=== PATIENT | female | born 1945 | race Caucasian/White ===

== ENCOUNTER → 2017-11-13 12:45 | Outpatient (CLI) | payer MEDICARE, MEDICAID, SELFPAY ==
--- NOTE | 2017-11-13 | DI.MG.S_ITS ---
BILATERAL DIGITAL SCREENING MAMMOGRAM 3D/2D WITH CAD: 11/13/2017 CLINICAL: Routine screening. Family history of breast cancer. Comparison is made to exams dated: 08/18/2015 mammogram, 08/11/2014 mammogram, and 06/27/2013 mammogram - [facility]. There are scattered fibroglandular elements in both breasts. Current study was also evaluated with a Computer Aided Detection (CAD) system. No significant masses, calcifications, or other findings are seen in either breast. There has been no significant interval change. IMPRESSION: NEGATIVE There is no mammographic evidence of malignancy. A 1 year screening mammogram is recommended. This exam was interpreted at Station ID: [id number]. NOTE: For mammograms, a report in lay terms will be sent to the patient. Approximately 15% of breast malignancies will not be visualized mammographically. In the management of a palpable breast mass, a negative mammogram must not discourage biopsy of a clinically suspicious lesion. Electronically Signed By: Ayo hammonds/peyton:11/13/2017 16:51:50 letter sent: Normal Exam ACR BI-RADS Category 1: Negative [id number]
== END ==
PROVIDERS: Family Provider Nurse Practitioner Family; PCP Family Medicine; Visit Provider Family Medicine
DX: Z12.31 Encounter for screening mammogram for malignant neoplasm of breast (principal); Z80.3 Family history of malignant neoplasm of breast
CPT/HCPCS: 77063; 77067

== ENCOUNTER → 2018-02-12 14:56 | Outpatient (CLI) | payer MEDICARE, MEDICAID, SELFPAY ==
--- NOTE | 2018-02-12 14:59 | DI.RAD.S_ITS ---
PROCEDURE: XR KNEE RT 3V INDICATIONS: right knee pain TECHNIQUE: 3 views of the knee were acquired. COMPARISON: None. FINDINGS: Bones: No fractures or dislocations. No suspicious bony lesions. Mild degenerative joint disease is present with joint space narrowing and small osteophytes in the medial femorotibial compartment and patellofemoral compartment. Soft tissues: Moderate joint effusion is suspected. No suspicious soft tissue calcifications. IMPRESSION: 1. Mild degenerative joint disease. 2. Suspect moderate knee joint effusion. Dictated by: Zenaida Delatorre M.D. on 02/12/2018 at 17:12 Approved by: Zenaida Delatorre M.D. on 02/12/2018 at 17:45
== END ==
PROVIDERS: Family Provider Nurse Practitioner Family; PCP Family Medicine; Visit Provider Internal Medicine
DX: M25.561 Pain in right knee (principal); M17.11 Unilateral primary osteoarthritis, right knee
CPT/HCPCS: 73562

== ENCOUNTER 2018-02-26 11:05 | Outpatient (RCR) | payer MEDICARE, MEDICAID, SELFPAY ==
--- NOTE | 2018-02-28 09:26 | PT.OIE ---
Current Diagnoses Pain in right knee (02/26/18) Past Medical History (Last Updated 01/08/18 @ 16:48 by Lisa Strauss) Mastocytosis (Chronic) Osteoporosis (Chronic 2013) Provider Visit Care Team Role Provider Type Apryl Naqvi MD Primary Care Provider Physician Specialty: Family Practice Address: [address] [place] [address] Email: [email or web address] JANNET Sanchez Attending Provider Advanced Laboratory Immunologist Specialty: Family Practice Address: [address] [place] [address], [address] Email: [email or web address] Physical Therapy Initial Evaluation PT-OP-A Visit Information Start: 02/28/18 09:03 Freq: Status: Active Protocol: Document 02/28/18 09:04 [facility] (Rec: 02/28/18 09:26 [facility] [id number]) Out-Patient Physical Therapy Visit Information Visit Information Visit Type Initial Evaluation Visit Start Time 11:15 Visit Stop Time 12:00 Total Visit Minutes 45 Visit Number 1 Number of LICENSED SALES PRODUCER Visits 0 Evaluation Information Evaluation Date 02/26/18 PT-OP-B Current Condition Start: 02/28/18 09:03 Freq: Status: Active Protocol: Document 02/28/18 09:04 [facility] (Rec: 02/28/18 09:26 [facility] [id number]) Current Condition History of Current Condition Onset Date Beginning of January 2018 Current Complaints right sided knee pain, instability and swelling History of Current Condition Jenifer is a 72 year old female who was walking up her 19 stairs carrying her groceries and a 20# bag of cat litter. She stepped up and felt a strain in her right knee. SInce that time she reports feeling swelling and instability in her knee. She notes her kneecap feelis like it wants to move around She is cautious with her first step after sitting as she does not feel stable. She is not using a assistive device to walk at this time. 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 PT-OP-C Subjective Start: 02/28/18 09:03 Freq: Status: Active Protocol: Document 02/28/18 09:04 [facility] (Rec: 02/28/18 09:26 [facility] [email or web address]) OP-PT Pain Assessment Pain Assessment Grid Paper Pain Assessment Grid Completed Yes Location Right Knee Pain Location Details medial side of the knee and under the knee cap Intensity 7 Scale Used Numeric (1 - 10) Pain Aggravating Factors Changing Position Activity Exercise Standing Walking Stair Climbing Lifting PT-OP-F Manual Assessment Start: 02/28/18 09:03 Freq: Status: Active Protocol: Document 02/28/18 09:04 [facility] (Rec: 02/28/18 09:26 [facility] [email or web address]) Manual Assessments Soft Tissue Assessment Soft Tissue Mobility Assessment swelling noted to palpation distal to the patella, tenderness to palpation at the medial joint line Joint Mobility Assessment Joint Mobility Assessment tenderness noted with patella mobilization PT-OP-G Mobility & Gait Start: 02/28/18 09:03 Freq: Status: Active Protocol: Document 02/28/18 09:04 [facility] (Rec: 02/28/18 09:26 [facility] [email or web address]) OP Gait Assessment Gait Deviations General Gait Pattern Antalgic Factors Limiting Gait Function Factors Limiting Gait Function Pain PT-OP-J Posture/Palpation/Skin Start: 02/28/18 09:03 Freq: Status: Active Protocol: Document 02/28/18 09:04 [facility] (Rec: 02/28/18 09:26 [facility] [email or web address]) Palpation Assessment Location One Palpation Location right patella and medial knee Palpation Findings Edema Tenderness PT-OP-K Range of Motion Start: 02/28/18 09:03 Freq: Status: Active Protocol: Document 02/28/18 09:04 [facility] (Rec: 02/28/18 09:26 [facility] [email or web address]) Knee Goniometric Range of Motion Knee Measured in Degrees Right Knee ROM WFL No Patient Position Supine Flexion Active (degrees) 110 Extension Active (degrees) 5 Knee ROM Limitations Knee ROM Limitations Soft Tissue Tightness Pain Swelling Comments limited by pain and swelling with flexion Jenifer notes feeling pressue under her patella PT-OP-M Strength Start: 02/28/18 09:03 Freq: Status: Active Protocol: Document 02/28/18 09:04 [facility] (Rec: 02/28/18 09:26 [facility] [email or web address]) Knee Strength Knee Manual Muscle Testing Right Flexion (S2) 3 Fair Extension (L3) 3- Fair- Comments it is very difficult for Jenifer to perform a quadriceps isometric contraction PT-OP-Q Treatments Start: 02/28/18 09:03 Freq: Status: Active Protocol: Document 02/28/18 09:04 [facility] (Rec: 02/28/18 09:26 [facility] [email or web address]) Therapeutic Exercises Supine Exercises 2 Supine Exercise Name heel slides Side right 1 Supine Exercise Name quad sets Side bilateral Reps/Minutes 2 x 10 Strapping Treatment Treatment Body Location right knee Details of Treatment kinesiotape to support the patella and prevent lateral glide PT-OP-R Modalities Start: 02/28/18 09:03 Freq: Status: Active Protocol: Document 02/28/18 09:04 [facility] (Rec: 02/28/18 09:26 [facility] [email or web address]) Hot Pack/Cold Pack Treatment Ice Massage Location right medial knee Patient Position Supine Patient Tolerance Good Comments pt really liked the ice but I did place the ice in a washcloth as initially it was too cold for her tolerance. Afterward she noted how much better her knee felt PT-OP-T Assessment and Plan Start: 02/28/18 09:03 Freq: Status: Active Protocol: Document 02/28/18 09:04 [facility] (Rec: 02/28/18 09:26 [facility] [email or web address]) Physical Therapy Assessment Rehab Potential Rehabilitation Potential Good Evaluation Complexity Number of Personal Factors/Comorbidities 0 Number of Body Systems Impaired 1-2 Clinical Presentation at Evaluation Stable Impairments Impairments Activity Tolerance Edema Functional Activities Functional Mobility Gait Pain ROM Soft Tissue Mobility Strength Goals Four Impairment Limited with work duties and stairs due to pain Forestry Engineer Goal (LTG) Jenifer is able to return to all her work related duties with improved support of her knee and decreased pain Three Impairment Right knee pain rated 7/10 [facility] Goal (LTG) Decrease c/o right knee pain with ther ex, taping, ice, and manual therapy techniques to 1-2/10 LTG Duration 8 weeks Two Impairment patella instability and fear of knee giving out with standing Short Term Goal (STG) Improve the muscular control around the patella for improved patella stability. Jenifer is able to perform a active quadricep contraction and hold for 5 seconds STG Duration 4 weeks One Impairment decreased knee ROM on the right Short Term Goal (STG) Improve right knee ROM to WFL STG Duration 4 weeks Assessment Summary Assessment Jenifer presents to physical therapy today with symptoms of right knee strain following climbing up stairs with a heavy bag of cat liter. She may benefit from a assistive device until she is more stable as she tends to limp expecially when she first stands up. She is feeling a like her knee is unstable. With examination there is a good amount of swelling under the patella and this would make it not as stable. Jenifer at first was not able to contract her quadriceps muscle but with help today she was beginning to facilitate it. She is tender to palpation over the medial joint line in the medial meniscus region. She lacks full knee flexion and extension today most likely due to swelling. Treatment today included kinesiotape to help stabilize the patella, pt was instruced in AROM and quadriceps facilitation, and she was instructed in ice massage. She tolerated this treatment well. Physical Therapy Plan Frequency and Duration Frequency of Treatment 2x/Week Duration of Treatment 8 weeks Plan of Care Start Date 02/26/18 Plan of Care End Date 04/23/18 Therapeutic Interventions Therapeutic Interventions Balance Training Home Exercise Program Joint Mobilizations Manual Therapy Patient/Caregiver Education Self-Care/Home Management Soft Tissue Mobilization Taping Therapeutic Exercises Modalities Cold Pack/Ice Massage Electric Stimulation Next Visit Focus/Plan Next Note Type Treatment Note Next Visit Plan progress knee stabilization exercises, evaluate tape response, and begin the bike for knee ROM
--- NOTE | 2018-02-28 09:26 | PT.OPPOC ---
Current Diagnoses Pain in right knee (02/26/18) Provider Visit Care Team Role Provider Type Apryl Naqvi MD Primary Care Provider Physician Specialty: Family Practice Address: [address] [place] [address], [address] Email: [email or web address] JANNET Sanchez Attending Provider Advanced Entry Level Lab Technician Specialty: Family Practice Address: [address] [place] [address], [address] Email: [email or web address] Plan Of Care PT-OP-T Assessment and Plan Start: 02/28/18 09:03 Freq: Status: Active Protocol: Document 02/28/18 09:04 [facility] (Rec: 02/28/18 09:26 [facility] [email or web address]) Physical Therapy Assessment Rehab Potential Rehabilitation Potential Good Evaluation Complexity Number of Personal Factors/Comorbidities 0 Number of Body Systems Impaired 1-2 Clinical Presentation at Evaluation Stable Impairments Impairments Activity Tolerance Edema Functional Activities Functional Mobility Gait Pain ROM Soft Tissue Mobility Strength Goals Four Impairment Limited with work duties and stairs due to pain Care Home Goal (LTG) Jenifer is able to return to all her work related duties with improved support of her knee and decreased pain Three Impairment Right knee pain rated 7/10 Central Supply Aide Goal (LTG) Decrease c/o right knee pain with ther ex, taping, ice, and manual therapy techniques to 1-2/10 LTG Duration 8 weeks Two Impairment patella instability and fear of knee giving out with standing Short Term Goal (STG) Improve the muscular control around the patella for improved patella stability. Jenifer is able to perform a active quadricep contraction and hold for 5 seconds STG Duration 4 weeks One Impairment decreased knee ROM on the right Short Term Goal (STG) Improve right knee ROM to WFL STG Duration 4 weeks Assessment Summary Assessment Jenifer presents to physical therapy today with symptoms of right knee strain following climbing up stairs with a heavy bag of cat liter. She may benefit from a assistive device until she is more stable as she tends to limp expecially when she first stands up. She is feeling a like her knee is unstable. With examination there is a good amount of swelling under the patella and this would make it not as stable. Jenifer at first was not able to contract her quadriceps muscle but with help today she was beginning to facilitate it. She is tender to palpation over the medial joint line in the medial meniscus region. She lacks full knee flexion and extension today most likely due to swelling. Treatment today included kinesiotape to help stabilize the patella, pt was instruced in AROM and quadriceps facilitation, and she was instructed in ice massage. She tolerated this treatment well. Physical Therapy Plan Frequency and Duration Frequency of Treatment 2x/Week Duration of Treatment 8 weeks Plan of Care Start Date 02/26/18 Plan of Care End Date 04/23/18 Therapeutic Interventions Therapeutic Interventions Balance Training Home Exercise Program Joint Mobilizations Manual Therapy Patient/Caregiver Education Self-Care/Home Management Soft Tissue Mobilization Taping Therapeutic Exercises Modalities Cold Pack/Ice Massage Electric Stimulation Next Visit Focus/Plan Next Note Type Treatment Note Next Visit Plan progress knee stabilization exercises, evaluate tape response, and begin the bike for knee ROM Plan of Care Dates Plan of Care Start Date 02/26/18 Plan of Care End Date 04/23/18 Please Sign and Return: I have reviewed this Plan of Care and certify that the skilled therapy services above are required to meet the patient?s needs. Physician Signature Date Printed Name and Credentials Clinical Instructor Signature Printed Name and Credentials
--- NOTE | 2018-03-21 09:39 | PT.OPDS ---
Current Diagnoses Pain in right knee (02/26/18) Provider Visit Care Team Role Provider Type Apryl Naqvi MD Primary Care Provider Physician Specialty: Family Practice Address: [address] [place] [address], [id number] Email: [email or web address] JANNET Sanchez Attending Provider Advanced Thread Spooler Specialty: Family Practice Address: [address] [place] [address], [address] Email: [email or web address] Visit Number Visit Number 1 Discharge Summary PT-OP-B Current Condition Start: 02/28/18 09:03 Freq: Status: Active Protocol: Document 02/26/18 13:00 [facility] (Rec: 02/28/18 09:26 [facility] [email or web address]) Current Condition History of Current Condition Onset Date Beginning of January 2018 Current Complaints right sided knee pain, instability and swelling History of Current Condition Jenifer is a 72 year old female who was walking up her 19 stairs carrying her groceries and a 20# bag of cat litter. She stepped up and felt a strain in her right knee. SInce that time she reports feeling swelling and instability in her knee. She notes her kneecap feelis like it wants to move around She is cautious with her first step after sitting as she does not feel stable. She is not using a assistive device to walk at this time. 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 PT-OP-C Subjective Start: 02/28/18 09:03 Freq: Status: Active Protocol: Document 02/26/18 13:00 [facility] (Rec: 02/28/18 09:26 [facility] [email or web address]) OP-PT Pain Assessment Pain Assessment Grid Paper Pain Assessment Grid Completed Yes Location Right Knee Pain Location Details medial side of the knee and under the knee cap Intensity 7 Scale Used Numeric (1 - 10) Pain Aggravating Factors Changing Position Activity Exercise Standing Walking Stair Climbing Lifting PT-OP-F Manual Assessment Start: 02/28/18 09:03 Freq: Status: Active Protocol: Document 02/26/18 13:00 [facility] (Rec: 02/28/18 09:26 [facility] [email or web address]) Manual Assessments Soft Tissue Assessment Soft Tissue Mobility Assessment swelling noted to palpation distal to the patella, tenderness to palpation at the medial joint line Joint Mobility Assessment Joint Mobility Assessment tenderness noted with patella mobilization PT-OP-G Mobility & Gait Start: 02/28/18 09:03 Freq: Status: Active Protocol: Document 02/26/18 13:00 [facility] (Rec: 02/28/18 09:26 [facility] [email or web address]) OP Gait Assessment Gait Deviations General Gait Pattern Antalgic Factors Limiting Gait Function Factors Limiting Gait Function Pain PT-OP-J Posture/Palpation/Skin Start: 02/28/18 09:03 Freq: Status: Active Protocol: Document 02/26/18 13:00 [facility] (Rec: 02/28/18 09:26 [facility] [email or web address]) Palpation Assessment Location One Palpation Location right patella and medial knee Palpation Findings Edema Tenderness PT-OP-K Range of Motion Start: 02/28/18 09:03 Freq: Status: Active Protocol: Document 02/26/18 13:00 [facility] (Rec: 02/28/18 09:26 [facility] [email or web address]) Knee Goniometric Range of Motion Knee Measured in Degrees Right Knee ROM WFL No Patient Position Supine Flexion Active (degrees) 110 Extension Active (degrees) 5 Knee ROM Limitations Knee ROM Limitations Soft Tissue Tightness Pain Swelling Comments limited by pain and swelling with flexion Jenifer notes feeling pressue under her patella PT-OP-M Strength Start: 02/28/18 09:03 Freq: Status: Active Protocol: Document 02/26/18 13:00 [facility] (Rec: 02/28/18 09:26 [facility] [email or web address]) Knee Strength Knee Manual Muscle Testing Right Flexion (S2) 3 Fair Extension (L3) 3- Fair- Comments it is very difficult for Jenifer to perform a quadriceps isometric contraction PT-OP-T Assessment and Plan Start: 02/28/18 09:03 Freq: Status: Active Protocol: Document 03/21/18 09:38 [facility] (Rec: 03/21/18 09:39 [facility] [email or web address]) Physical Therapy Assessment Assessment Summary Assessment Jenifer was seen for her initial evaluation only. She requested a discharge as she wanted to see a Orthopedic doctor for further work up Physical Therapy Plan Discharge Physical Therapy Discharge Reasons Patient Request
== END 2018-03-27 09:20 ==
LOC: PHYS 11:05
PROVIDERS: PCP Family Medicine; Visit Provider Internal Medicine
DX: M25.561 Pain in right knee (principal)
CPT/HCPCS: 97110; 97161

== ENCOUNTER → 2018-03-01 19:03 | Outpatient (CLI) | payer MEDICARE, MEDICAID, SELFPAY ==
--- NOTE | 2018-03-01 19:11 | DI.MRI.S_ITS ---
PROCEDURE: MR KNEE RT WO CON INDICATIONS: right knee pain TECHNIQUE: Noncontrast sagittal PD fast spin echo and T2 fast spin echo with fat saturation, sagittal 3-D FLASH with fat saturation; coronal T1 spin echo and PD fast spin echo with fat saturation, and axial PD fast spin echo with fat saturation through the knee. COMPARISON: [facility], CR, XR KNEE RT 3V, 02/12/2018, 15:07. FINDINGS: Image quality: Excellent. Menisci: Flat tear of the posterior horn of the medial meniscus which extends to the inferior articular surface. There is a flap tear of the body of the lateral meniscus which extends to the superior articular surface. The meniscal root ligaments appear intact. Cruciate ligaments: The anterior and posterior cruciate ligaments appear intact. There is increased signal within the anterior cruciate ligament concerning for mild sprain. Medial structures: The medial collateral ligament appears intact. Edema is noted adjacent to the medial collateral ligament compatible with mild sprain. The posterior oblique ligament, semimembranosus tendon insertions, oblique popliteal ligament, and meniscocapsular junction appear intact. Visualized portions of the pes anserinus tendons appear normal. No abnormal bursal fluid. Lateral structures: The lateral collateral ligament, long and short heads of the biceps femoris tendon appear intact. The popliteus tendon appears normal; the popliteofibular ligament appears intact. The posterosuperior and anteroinferior popliteomeniscal fascicles appear intact. The arcuate and fabellofibular ligaments appear intact, on either side of the lateral inferior geniculate artery. Iliotibial band appears normal. Anterior structures: The quadriceps and patellar tendons appear intact. Patellar alignment is normal. No femoral trochlear dysplasia or ventral trochlear prominence. No edema in the infrapatellar fat pad. Bones and cartilage: No bone marrow contusions or fractures. The cartilage of the medial and lateral femorotibial compartments, as well as the patellofemoral compartment, appears normal in thickness. Joint space: There is a large joint effusion. There is a large popliteal cyst. Normal appearing synovial plicae are incidentally noted. IMPRESSION: 1. Tear of the posterior horn of the medial meniscus. 2. Tear of the body of the lateral meniscus. 3. Medial collateral ligament sprain. 4. Possible mild anterior cruciate ligament sprain. 5. Large nonspecific joint effusion. 6. Large popliteal cyst which may be ruptured. Dictated by: Clary Hernandez MD, PhD on 03/02/2018 at 23:40 Approved by: Clary Hernandez MD, PhD on 03/02/2018 at 23:51
== END ==
PROVIDERS: PCP Family Medicine; Visit Provider Family Medicine
DX: M25.561 Pain in right knee (principal); S83.281A Other tear of lateral meniscus, current injury, right knee, initial encounter; S83.241A Other tear of medial meniscus, current injury, right knee, initial encounter; S83.511A Sprain of anterior cruciate ligament of right knee, initial encounter; S83.411A Sprain of medial collateral ligament of right knee, initial encounter; M25.461 Effusion, right knee; M71.21 Synovial cyst of popliteal space [Baker], right knee
CPT/HCPCS: 73721

== ENCOUNTER → 2018-03-08 11:43 | Outpatient (CLI) | payer MEDICARE, MEDICAID, SELFPAY ==
[2018-03-08 13:16] LABS: BUN Creatinine Ratio 21.3 (6-22); Blood Urea Nitrogen 17 mg/dL (7-17); Calcium 9.2 mg/dL (8.4-10.2); Carbon Dioxide 28 mmol/L (22-32); Chloride 105 mmol/L (98-107); Cholesterol 202 mg/dL (140-199); Estimated Glomerular Filt Rate > 60.0 mL/min (>60); Glucose 86 mg/dL (80-110); HDL Cholesterol 71 mg/dL (40-60); HEMOLYSIS < 15 (0-50); LDL Cholesterol Calculated 114 mg/dL (<100); Potassium 4.5 mmol/L (3.4-5.1); Sodium 144 mmol/L (137-145); Triglycerides 87 mg/dL (35-150)
[2018-03-08 14:58] LABS: Creatinine Urine Random 158.8 mg/dL
[2018-03-08 15:04] LABS: Microalbumin Urine Random 4.3 mg/dL (0-1.6)
== END ==
PROVIDERS: PCP Family Medicine; Visit Provider Family Medicine
DX: E78.5 Hyperlipidemia, unspecified (principal); I10 Essential (primary) hypertension
CPT/HCPCS: 36415; 80048; 80061; 82043; 82570

== ENCOUNTER → 2018-06-21 12:30 | Outpatient (CLI) | payer MEDICARE, MEDICAID, SELFPAY ==
--- NOTE | 2018-07-05 16:32 | PM.CARDMON.1 ---
Body Mechanic Apprentice Report Referral & Results Date Patient Seen: 06/21/18 Indication: Atrial fibrillation Duration of monitoring (days): 3 Diary information: No patient diary entries or patient triggered events were present Data: Minimum heart rate identified was 52 beats per minute at 07:34 on 06/24/2018 Maximum heart rate was 139 beats per minute at 14:27 on 06/21/2018 Less than 1% identified beats or either ventricular or supraventricular ectopic in origin Patient had 1 4 beat run of accelerated atrial rhythm with a rate of 111 beats per minute Impression: Essentially normal cardiac rehabilitation program director with occasional supraventricular beats as above.
== END ==
PROVIDERS: PCP Family Medicine; Visit Provider Family Medicine
DX: I48.91 Unspecified atrial fibrillation (principal)
CPT/HCPCS: 0296T; 0298T

== ENCOUNTER → 2018-06-24 14:50 | Outpatient (CLI) | payer MEDICARE, MEDICAID, SELFPAY | PROVIDERS: PCP Family Medicine; Visit Provider Family Medicine | DX: M81.0 Age-related osteoporosis without current pathological fracture (principal); Z78.0 Asymptomatic menopausal state; Z87.891 Personal history of nicotine dependence | CPT/HCPCS: 77080 ==

== ENCOUNTER → 2018-12-20 14:34 | Outpatient (CLI) | payer MEDICARE, SELFPAY ==
--- NOTE | 2018-12-20 14:38 | DI.RAD.S_ITS ---
PROCEDURE: XR LUMBAR SPINE MIN 4V INDICATIONS: new low back pain, severe lumbar osteoporosis TECHNIQUE: 5 total views of the lumbar spine were acquired, including bilateral oblique views. COMPARISON: [facility], , L-SPINE 2-3 VIEWS, 07/24/2011, 13:54. FINDINGS: Bones: 5 nonrib-bearing vertebrae are present. No vertebral body compression fractures. No suspicious bony lesions. Grade 1 anterolisthesis is seen at the L4-L5 level. There is moderate disc space narrowing at L4-L5 and mild to moderate disc space narrowing at L5-S1. The disc heights otherwise appear well-preserved. Lower lumbar spine facet arthropathy is seen. Soft tissues: Overlying bowel gas pattern is normal. No suspicious soft tissue calcifications. Oblique images: No pars defects. IMPRESSION: Grade 1 L4-L5 anterolisthesis. Lower lumbar spine degenerative changes are seen. No pars defects are seen on oblique images. Dictated by: Chuy Wilson M.D. on 12/20/2018 at 15:16 Approved by: Chuy Wilson M.D. on 12/20/2018 at 15:17
== END ==
PROVIDERS: PCP Family Medicine; Visit Provider Family Medicine
DX: M54.5 Low back pain (principal); M85.88 Other specified disorders of bone density and structure, other site; M43.16 Spondylolisthesis, lumbar region; M47.816 Spondylosis without myelopathy or radiculopathy, lumbar region
CPT/HCPCS: 72110

== ENCOUNTER → 2019-08-20 16:54 | Outpatient (CLI) | payer MEDICARE, SELFPAY ==
[2019-08-20 16:59] LABS: Bacteria Urine None Seen; RBC Urine None Seen (0-5/HPF); WBC Urine None Seen (0-5/HPF)
[2019-08-20 17:44] LABS: Appearance Urine UA CLEAR; Bilirubin Urine UA NEGATIVE (NEGATIVE); Color Urine UA YELLOW; Glucose Urine UA NEGATIVE (Negative); Ketones Urine UA NEGATIVE (NEGATIVE); Leukocyte Esterase Urine UA NEGATIVE (NEGATIVE); Nitrite Urine UA NEGATIVE (Negative); Occult Blood Urine UA NEGATIVE (Negative); Protein Urine UA NEGATIVE (Negative); Specific Gravity Urine UA >=1.030 (1.000-1.035); Urobilinogen Urine UA 0.2 E.U./dL (0.2)
[2019-08-20 18:01] LABS: Hematocrit 44.4 % (36-46); Hemoglobin 15.4 g/dL (12.0-16.0); Mean Corpuscular HGB Conc 34.7 % (30-36); Mean Corpuscular Hemoglobin 32.6 PG (26-34); Platelet Count 197 X10^3/uL (150-400); Red Blood Cell Count 4.72 X10^6/uL (4.0-5.2); Red Cell Distribution Width 13.8 % (11.6-14.8); White Blood Cell Count 5.5 X10^3/uL (4.5-11.0)
[2019-08-20 18:05] LABS: Culture Indicated Urine Cult Not Indicated; Squamous Epithelial Cell Urine 0-1 /HPF (0-5/HPF)
[2019-08-20 18:14] LABS: Alanine Aminotransferase 18 IU/L (<35); Albumin 4.5 g/dL (3.5-5.0); Albumin Globulin Ratio 1.3 (1.0-2.8); Alkaline Phosphatase 58 U/L (38-126); Aspartate Aminotransferase 28 IU/L (14-36); BUN Creatinine Ratio 32.5 (6-22); Bilirubin Total 0.4 mg/dL (0.2-1.3); Blood Urea Nitrogen 27 mg/dL (7-17); Calcium 10.2 mg/dL (8.4-10.2); Carbon Dioxide 26 mmol/L (22-32); Chloride 105 mmol/L (98-107); Cholesterol 271 mg/dL (140-199); Estimated Glomerular Filt Rate > 60.0 mL/min (>60); Globulin 3.4 g/dL (1.7-4.1); Glucose 96 mg/dL (80-110); HDL Cholesterol 73 mg/dL (40-60); HEMOLYSIS < 15 (0-50); LDL Cholesterol Calculated 169 mg/dL (<100); Magnesium 1.9 mg/dL (1.6-2.3); Potassium 4.4 mmol/L (3.4-5.1); Sodium 139 mmol/L (137-145); Total Protein 7.9 g/dL (6.3-8.2); Triglycerides 147 mg/dL (35-150)
[2019-08-20 18:52] LABS: Thyroid Stimulating Hormone 1.25 uIU/mL (0.47-4.68)
== END ==
PROVIDERS: PCP Family Medicine; Referring Provider Nurse Practitioner Family; Visit Provider Nurse Practitioner Family
DX: Z13.6 Encounter for screening for cardiovascular disorders (principal); R42 Dizziness and giddiness
CPT/HCPCS: 36415; 80053; 80061; 81001; 83735; 84443; 85027

== ENCOUNTER → 2020-02-27 13:00 | Outpatient (CLI) | payer MEDICARE, MEDICAID, SELFPAY ==
--- NOTE | 2020-02-27 13:03 | DI.MG.S_ITS ---
BILATERAL DIGITAL SCREENING MAMMOGRAM 3D/2D WITH CAD: 02/27/2020 CLINICAL: Routine screening. Family history of breast cancer. Comparison is made to exams dated: 11/13/2017 mammogram, 08/18/2015 mammogram, and 08/11/2014 mammogram - [facility]. There are scattered fibroglandular elements in both breasts. Current study was also evaluated with a Computer Aided Detection (CAD) system. No significant masses, calcifications, or other findings are seen in either breast. There has been no significant interval change. IMPRESSION: NEGATIVE There is no mammographic evidence of malignancy. A 1 year screening mammogram is recommended. This exam was interpreted at Station ID: [id number]. NOTE: For mammograms, a report in lay terms will be sent to the patient. Approximately 15% of breast malignancies will not be visualized mammographically. In the management of a palpable breast mass, a negative mammogram must not discourage biopsy of a clinically suspicious lesion. Electronically Signed By: Kenya rios/peyton:03/02/2020 10:13:17 letter sent: Normal Exam ACR BI-RADS Category 1: Negative [id number]
== END ==
PROVIDERS: PCP Family Medicine; Referring Provider Family Medicine; Visit Provider Family Medicine
DX: Z12.31 Encounter for screening mammogram for malignant neoplasm of breast (principal); Z80.3 Family history of malignant neoplasm of breast
CPT/HCPCS: 77063; 77067

== ENCOUNTER → 2020-03-09 12:37 | Outpatient (CLI) | payer MEDICARE, MEDICAID, SELFPAY ==
[2020-03-09 13:50] LABS: COVID19 -Nasal RAPID Negative (Negative)
== END ==
PROVIDERS: PCP Family Medicine; Visit Provider Family Medicine
DX: Z11.59 Encounter for screening for other viral diseases (principal)
CPT/HCPCS: 87635

== ENCOUNTER → 2020-12-27 16:05 | Outpatient (CLI) | payer MEDICARE, MEDICAID, SELFPAY ==
--- NOTE | 2020-12-27 16:07 | DI.RAD.S_ITS ---
PROCEDURE: XR ANKLE RT MIN 3V INDICATIONS: Ankle injury TECHNIQUE: 3 views of the ankle were acquired. COMPARISON: [facility], , ANKLE 3 VIEWS LEFT, 10/27/2009, 15:47. [facility], , XR FOOT RT MIN 3V, 12/27/2020, 16:20. FINDINGS: Bones: No fractures or dislocations. Ankle mortise is normally aligned. No suspicious bony lesions. Soft tissues: No tibiotalar joint effusion. Achilles tendon appears normal. IMPRESSION: No visualized acute fracture or dislocation. However, if clinical concern and/or pain persist, short interval imaging followup in 7-10 days is recommended, as occult injury cannot be definitively excluded. Dictated by: Brittany Salgado M.D. on 12/27/2020 at 16:45 Approved by: Brittany Salgado M.D. on 12/27/2020 at 16:46
--- NOTE | 2020-12-27 16:07 | DI.RAD.S_ITS ---
PROCEDURE: XR FOOT RT MIN 3V INDICATIONS: Foot injury TECHNIQUE: 3 views of the foot were acquired. COMPARISON: [facility], CR, XR ANKLE RT MIN 3V, 12/27/2020, 16:20. [facility], CR, FOOT 3V LEFT, 10/27/2009, 15:47. FINDINGS: Bones: No fractures or dislocations. No suspicious bony lesions. Soft tissues: No tibiotalar joint effusion. Achilles tendon appears normal. Generalized soft tissue swelling noted IMPRESSION: Soft tissue swelling without fracture or foreign body Approved by: Franco Jama M.D. on 12/27/2020 at 15:49
== END ==
PROVIDERS: PCP Family Medicine; Referring Provider Internal Medicine; Visit Provider Internal Medicine
DX: S99.911A Unspecified injury of right ankle, initial encounter (principal); S99.921A Unspecified injury of right foot, initial encounter; M79.89 Other specified soft tissue disorders; X58.XXXA Exposure to other specified factors, initial encounter
CPT/HCPCS: 73610; 73630

== ENCOUNTER → 2021-02-02 15:40 | Outpatient (CLI) | payer MEDICARE, MEDICAID, SELFPAY ==
[2021-02-02 16:11] LABS: COVID19 -Nasal RAPID Negative (Negative)
== END ==
PROVIDERS: PCP Family Medicine; Visit Provider Family Medicine
DX: Z20.822 Contact with and (suspected) exposure to COVID-19 (principal); R05.9 Cough, unspecified
CPT/HCPCS: 87635

== ENCOUNTER → 2021-02-11 14:43 | Outpatient (CLI) | payer MEDICARE, MEDICAID, SELFPAY | PROVIDERS: PCP Family Medicine; Referring Provider Family Medicine; Visit Provider Family Medicine | DX: M54.9 Dorsalgia, unspecified (principal); R35.0 Frequency of micturition | CPT/HCPCS: 87086 ==

== ENCOUNTER → 2021-04-21 11:07 | Outpatient (CLI) | payer MEDICARE, MEDICAID, SELFPAY ==
[2021-04-21 12:28] LABS: COVID19 -Nasal RAPID Negative (Negative)
== END ==
PROVIDERS: PCP Family Medicine; Referring Provider Physician Assistant; Visit Provider Physician Assistant
DX: Z20.822 Contact with and (suspected) exposure to COVID-19 (principal)
CPT/HCPCS: 87635

== ENCOUNTER → 2021-04-21 13:14 | Outpatient (CLI) | payer MEDICARE, MEDICAID, SELFPAY ==
--- NOTE | 2021-04-21 13:15 | DI.MRI.S_ITS ---
PROCEDURE: MR FOOT RT WO CON INDICATIONS: possible midfoot ligament/soft tissue injury TECHNIQUE: Noncontrast sagittal T1 spin echo and T2 fast spin echo with fat saturation, long-axis T1 spin echo and T2 fast spin echo with fat saturation, short-axis T1 spin echo and T2 fast spin echo with fat saturation through the forefoot. COMPARISON: [facility], CR, XR FOOT RT MIN 3V, 12/27/2020, 16:20. FINDINGS: Image quality: Excellent. Bones and joints: No fracture line is appreciated. The sesamoid bones appear in expected positions, without internal edema. Patchy T2 hyperintense signal within the midfoot, compatible with edema, most prominent in the lateral aspect of the 1st cuneiform , 2nd cuneiform, and cuboid, raising concern for in developing neuropathic joint. New line fluid signal along the plantar aspect of the 2nd metatarsal base, concerning for bursitis. Bursal fluid about the medial, second metatarsal base. Soft tissues: Confluent T2 hyperintense signal in the dorsal soft tissues, compatible with edema. The visualized plantar foot muscles demonstrate normal signal and bulk. Visualized flexor and extensor tendons appear intact, without tenosynovitis. The distal insertions of the peroneus brevis and longus tendons appear intact. The principal Lisfranc ligament appears intact. Sagittal images demonstrate no evidence for plantar plate tears. IMPRESSION: 1. Patchy edematous signal within the midfoot osseous structures, raising concern for developing neuropathic joint. 2. Small bursal fluid along the medial, 2nd metatarsal base. 3. Dorsal soft tissue swelling. Dictated by: Mert Dow M.D. on 04/21/2021 at 16:06 Approved by: Mert Dow M.D. on 04/21/2021 at 16:25
== END ==
PROVIDERS: PCP Family Medicine; Referring Provider Family Medicine; Visit Provider Family Medicine
DX: M79.671 Pain in right foot (principal); M79.89 Other specified soft tissue disorders; R10.2 Pelvic and perineal pain; D25.2 Subserosal leiomyoma of uterus; N88.8 Other specified noninflammatory disorders of cervix uteri; Z20.822 Contact with and (suspected) exposure to COVID-19
CPT/HCPCS: 73718; 76830; 76856; 87635

== ENCOUNTER → 2021-04-21 13:27 | Outpatient (CLI) | payer MEDICARE, MEDICAID, SELFPAY ==
--- NOTE | 2021-04-21 | DI.US.S_ITS ---
PROCEDURE: US PELVIC COMPLETE INDICATIONS: SUPRAPUBIC PAIN TECHNIQUE: Real-time scanning was performed of the pelvic organs, with image documentation. Additional endovaginal scanning was necessary due to incomplete visualization of the adnexal and endometrial structures by transabdominal scanning. COMPARISON: [facility], , PELVIC COMPLETE, 12/18/2012, 13:11. FINDINGS: Uterus: Uterus is anteverted and normal in size at 4.2 x 3.8 x 2.4 cm. The myometrium is heterogeneous. The endometrium measures 1.4 mm combined thickness. Uterus is atrophic. There is a 1.3 x 1.4 x 1.3 cm subserosal fibroid in the right uterine wall. Note is made of nabothian cysts. Ovaries: Ovaries are not visualized. Other: No pathologic free abdominal or pelvic fluid. IMPRESSION: 1. Atrophic uterus with a small uterine fibroid. 2. Nabothian cysts. 3. Ovaries are not visualized. We strive to produce accurate, complete, and clear reports of imaging services. To assist us in improving patient care, this report was composed using standard report templates and voice recognition software. Therefore, it may contain abnormal punctuation, insertions and/or omissions. Occasional wrong-word or sound-alike substitutions may occur. Though we review the report and make efforts to correct it, we do recommend that the report be read carefully in proper context to recognize any text inaccuracies. Dictated by: Zenaida Delatorre M.D. on 04/21/2021 at 15:22 Approved by: Zenaida Delatorre M.D. on 04/21/2021 at 15:25
== END ==
PROVIDERS: PCP Family Medicine; Referring Provider Nurse Practitioner Family; Visit Provider Nurse Practitioner Family
DX: R10.2 Pelvic and perineal pain (principal); D25.2 Subserosal leiomyoma of uterus; N88.8 Other specified noninflammatory disorders of cervix uteri
CPT/HCPCS: 76830; 76856

== ENCOUNTER 2023-12-02 17:20 | Emergency (ER) | payer MEDICARE, MEDICAID, SELFPAY ==
[2023-12-02] VITALS (15 sets, daily range): BP systolic 143–228; BP diastolic 67–106; PULSE 77–95; RESP 16–18; TEMP 37.7; O2SAT 93–97; BMI 30.2
--- NOTE | 2023-12-02 17:26 | PC.NURSE ---
patient was able to ambulate to the bedside while holding on to the hands of the ems.
--- NOTE | 2023-12-02 17:45 | PC.NURSE ---
Pt recently seen at [facility], CT abd/pelvis, states stress fx of T12 was noted on CT. Pt given pain meds, states they make her nauseous. Taking Tylenol and ibuprofen. Reports IM dilaudid works the best, using lido-patches but they are not helping. Has appointment on 12/05 atv 1330 with [facility]. Pt lives alone, concerned she cannot control the pain at home.
[2023-12-02 18:07] LABS: Appearance Urine UA CLEAR; Bilirubin Urine UA NEGATIVE (NEGATIVE); Color Urine UA YELLOW; Glucose Urine UA NEGATIVE (Negative); Ketones Urine UA NEGATIVE (NEGATIVE); Leukocyte Esterase Urine UA NEGATIVE (NEGATIVE); Nitrite Urine UA NEGATIVE (Negative); Occult Blood Urine UA NEGATIVE (Negative); Protein Urine UA NEGATIVE (Negative); Specific Gravity Urine UA 1.015 (1.000-1.035); Urobilinogen Urine UA 0.2 E.U./dL (0.2)
[2023-12-02 18:13] LABS: Bacteria Urine Occasional (0-1); Culture Indicated Urine Cult Not Indicated; Mucus Urine 1+ (Negative); RBC Urine 0-1/HPF (0-5/HPF); Squamous Epithelial Cell Urine 1-5 /HPF (0-5/HPF); Urine Volume 10mL (spun); WBC Urine 0-1/HPF (0-5/HPF)
--- NOTE | 2023-12-02 19:39 | ED.BACK ---
HPI - Back Pain/Injury General Chief Complaint: Back Pain/Injury Stated Complaint: Compression fx t-7 on T-12 uncon. pain Time Seen by Provider: 12/02/23 18:00 Source: patient and EMS History of Present Illness HPI Narrative: 78-year-old female presents for back pain. Patient was seen [address] [facility] for her back ?giving out?. CT imaging showed that patient has mild T12 compression fracture. Patient was discharged with hydrocodone, however she states that it makes her feel very nauseous and she has not taken more than 1 dose of this medication. She states that she has been taking Tylenol and ibuprofen at home, but her pain is severe and she was having trouble functioning at home due to the pain, so she called 911 to bring her in for evaluation. Patient denies bowel or bladder incontinence, denies saddle anesthesia. Reports an intermittent throbbing headache since her incident that she would also like to be evaluated for. Patient states that IM Dilaudid given to her at [facility] was very helpful in controlling her pain. Related Data Home Medications Medication Instructions Recorded Confirmed MULTIVITAMIN (#MULTIPLE VITAMINS) 1 cap PO ##0 01/20/11 03/04/21 Fish Oil (Fish Oil 500 MG Softgel) 500 mg PO QDAY ##0 07/02/12 03/04/21 Previous Rx's Medication Instructions Recorded lisinopril 10 mg tablet See Rx Instructions .Route 10/22/20 .COMPLEX #90 tabs triamcinolone acetonide 0.025 % 1 applic topical QDAY #15 grams 05/04/21 topical cream tramadol 50 mg tablet 50 mg PO Q8H PRN pain #8 tabs 12/02/23 Allergies Allergy/AdvReac Type Severity Reaction Status Date / Time No Known Drug Allergies Allergy Verified 12/27/20 17:12 Patient History Medical History History of atrial fibrillation Urticaria pigmentosa Osteoporosis (2013) Mastocytosis Social History marital status: number of children: 2 household members: spouse lives independently: Yes caregiver/support person: No housing: house Smoking Status: Former smoker second hand exposure: No alcohol intake: current substance use type: does not use Smoking Status: Former smoker alcohol intake frequency: other Substance Use Type: does not use Exam Initial Vital Signs Initial Vital Signs: Vital Signs Pulse Rate 85 12/02/23 17:25 Pulse Oximetry 95 12/02/23 17:25 Const: Awake, alert, lying on her side in ED bed, no acute distress Cardiac: regular rate, regular rhythm RESP: unlabored, clear bilaterally, no wheezing GI: Soft, nontender, nondistended, no rebound, no guarding Skin: Warm, Dry, intact, no rashes Neuro: AO x3, CN II-XII grossly intact, moves all extremities, 5/5 strength in all extremities Course Orders Ordered: ED Orders 12/02/23 20:12 CT head/brain wo con Stat Discontinued Medications Hydromorphone HCl (Hydromorphone 1 Mg Inj) 0.5 mg IM NOW ONE Stop: 12/02/23 19:39 Last Admin: 12/02/23 19:44 Dose: 0.5 mg Documented By: SUZI Tramadol HCl (Tramadol 50 Mg Prepack) 1 bottle MISC DIRECTED ONE Stop: 12/02/23 21:51 Last Admin: 12/02/23 21:53 Dose: 1 bottle Documented By: SUZI Vital Signs Vital signs: Vital Signs - 8 hr 12/02/23 21:02 12/02/23 21:30 12/02/23 21:52 Pulse Rate 87 85 Respiratory Rate 18 16 Blood Pressure 148/74 H Pulse Oximetry 94 95 MDM - Back Pain/Injury Lab Data Labs: Lab Results 12/02/23 Range/Units 18:01 Urine Color Yellow Urine Appearance Clear Urine pH 6.0 (4.5-8.0) Ur Specific [place] 1.015 (1.000-1.035) Urine Protein Negative (Negative) Urine Glucose (UA) Negative (Negative) g/dL Urine Ketones Negative (NEGATIVE) Urine Occult Blood Negative (Negative) Urine Nitrate Negative (Negative) Urine Bilirubin Negative (NEGATIVE) Urine Urobilinogen 0.2 (0.2) E.U./dL Ur Leukocyte Esterase Negative (NEGATIVE) Urine RBC 0-1/hpf (0-5/HPF) Urine WBC 0-1/hpf (0-5/HPF) Ur Squamous Epith Cells 1-5 /hpf (0-5/HPF) Urine Bacteria Occasional (0-1) (None) Urine Mucus 1+ H (Negative) Ur Culture Indicated? Cult not indicated Vol Urine Centrifuged 10ml (spun) MDM Narrative Medical decision making narrative: Patient with known mild T12 compression fracture presents for uncontrolled pain at home. Was prescribed hydrocodone with states that it made her too nauseous and feel poorly. Denies new accidents or injuries. [facility] radiology report reviewed. Since patient's symptoms are unchanged from initial and she was had no further accidents or injuries no indication for additional imaging at this time. Patient neuro intact, denying signs or symptoms of cauda equina. Single dose of IM dilaudid administered in ED. Due to reports of headache CT imaging of brain ordered that was unremarkable. Patient counseled to continue to stop her [place] and we will change to tramadol. Patient states that she has already been referred to ortho spine and she was encouraged to make sure that she keeps a follow up appointment with that service. Discharge Plan Departure Patient Disposition: Home Clinical Impression: Compression fracture of T12 vertebra Instructions: DI for Vertebral Fracture Activity Restrictions/Additional Instructions: Take the pain medications as prescribed. Follow up with ortho spine as previously instructed Prescriptions: New tramadol 50 mg tablet 50 mg PO Q8H PRN (Reason: pain) Qty: 8 0RF No Action MULTIVITAMIN (#MULTIPLE VITAMINS) 1 cap PO Qty: 0 Fish Oil (Fish Oil 500 MG Softgel) 500 mg PO QDAY Qty: 0 lisinopril 10 mg tablet See Rx Instructions .ROUTE .COMPLEX Qty: 90 0RF Dose Instruction: 10 MG (1 TAB) BY MOUTH EVERY DAY Rx Instructions: 10 MG (1 TAB) BY MOUTH EVERY DAY; MUST BE SEEN FOR REFILLS triamcinolone acetonide 0.025 % cream 1 applic Topical QDAY Qty: 15 2RF Referrals: Apryl Naqvi MD [Primary Care Provider] - Stand Alone Forms: Patient Portal/API
[2023-12-02] MEDS: HYDROMORPHONE 1 MG INJ 0.5 MG IM (19:44)
--- NOTE | 2023-12-02 20:12 | DI.CT.S_ITS ---
PROCEDURE: CT HEAD/BRAIN WO CON INDICATIONS: headaches TECHNIQUE: Noncontrast 4.5 mm thick angled axial sections acquired from the foramen magnum to the vertex, with coronal and sagittal reformats. For radiation dose reduction, the following was used: automated exposure control, adjustment of mA and/or kV according to patient size. COMPARISON: None. FINDINGS: Image quality: Diagnostic. CSF spaces: Basal cisterns are patent. No extra-axial fluid collections. The ventricles are symmetric in size and shape. Brain: No intracranial bleeds or masses. There is cerebral volume loss for age, with resultant ventricular and sulcal prominence. There are periventricular and deep white matter chronic small vessel ischemic changes. There is intracranial internal carotid artery atherosclerosis. Skull and face: Calvarium and visualized facial bones appear intact, without suspicious lesions. Sinuses: Visualized sinuses and mastoids are clear. IMPRESSION: No CT evidence of acute intracranial process. Age-appropriate cerebral cortical volume loss and chronic microvascular ischemic changes. Dictated by: Dana Hou M.D. on 12/02/2023 at 21:35 Approved by: Dana Hou M.D. on 12/02/2023 at 21:36
[2023-12-02] MEDS: TRAMADOL 50 MG PREPACK 1 BOTTLE MISC (21:53)
== END 2023-12-02 22:15 | disposition home or self-care (01) ==
PROVIDERS: Emergency Provider Emergency Medicine; PCP Family Medicine
DX: R51.9 Headache, unspecified (principal); S22.080S Wedge compression fracture of T11-T12 vertebra, sequela
CPT/HCPCS: 70450; 81001; 96372; 99283; 99284; J1170

== ENCOUNTER 2024-07-19 14:10 | Emergency (ER) | payer MEDICARE, MEDICAID, SELFPAY ==
[2024-07-19] VITALS (9 sets, daily range): BP systolic 167–188; BP diastolic 84–115; PULSE 68–101; RESP 16–26; TEMP 36.7–36.8; O2SAT 94–97; BMI 23.9
--- NOTE | 2024-07-19 14:41 | ED_ITS ---
HPI - Back Pain/Injury General Chief Complaint: Back Pain/Injury Stated Complaint: dizzy/back pain Time Seen by Provider: 07/19/24 14:27 Source: patient History of Present Illness HPI Narrative: Patient here for improving urinary frequency, has bilateral flank discomfort, also has had dizziness. Patient blood pressure vital signs noted. She states her family doctor has been changing her blood pressure medications. She has been off of blood pressure medication for the past 3 weeks. She states she has been on lisinopril for over 15 years and she did receive a lisinopril that seemed to be different last month and it caused her to feel badly. Primary care did try to use losartan and the made her feel worse. Denies any chest pain palpitations or shortness of breath. Lightheadedness feels like she is floating in the air. No nausea or vomiting. Complains of bilateral flank pain. Related Data Home Medications Medication Instructions Recorded Confirmed MULTIVITAMIN (#MULTIPLE VITAMINS) 1 cap PO ##0 01/20/11 07/10/24 Fish Oil (Fish Oil 500 MG Softgel) 500 mg PO QDAY ##0 07/02/12 07/10/24 Fossamax PO 06/05/24 07/10/24 Previous Rx's Medication Instructions Recorded lisinopril 10 mg tablet See Rx Instructions .Route 10/22/20 .COMPLEX #90 tabs triamcinolone acetonide 0.025 % 1 applic topical QDAY #15 grams 05/04/21 topical cream amlodipine 10 mg tablet 10 mg PO DAILY #30 tabs 07/19/24 Allergies Allergy/AdvReac Type Severity Reaction Status Date / Time No Known Drug Allergies Allergy Verified 07/19/24 14:23 Review of Systems Review of Systems Narrative: GENERAL: Negative chills, fatigue, malaise, fever, sweats. HEENT: Negative sinus pain, ear pain, sore throat RESPIRATORY: Negative dyspnea, cough CARDIOVASCULAR: Negative chest pain, palpitations GASTROINTESTINAL: Negative vomiting, nausea, abdominal pain : Positive dysuria, frequency, negative hematuria MUSCULOSKELETAL: Positive back muscle or bony pain SKIN: Negative rash, skin lesions NEUROLOGIC: Negative weakness, numbness positive dizziness ROS Unobtainable: All systems reviewed & are unremarkable except as noted in HPI and below Patient History Medical History (Updated 07/19/24 @ 18:41 by Dom Boles MD) Cervical somatic dysfunction Thoracic region somatic dysfunction Cranial somatic dysfunction Chronic neck pain Chronic thoracic back pain Thoracic compression fracture History of atrial fibrillation Urticaria pigmentosa Osteoporosis (2013) Mastocytosis Social History marital status: number of children: 2 household members: spouse lives independently: Yes caregiver/support person: No housing: house Smoking Status: Never smoker second hand exposure: No alcohol intake: current substance use type: does not use Smoking Status: Never smoker alcohol intake frequency: other Exam Narrative Exam Narrative: GENERAL: in no distress, not toxic not dyspneic HEAD: Normocephalic. EYES: Pupils equal round ENT: Mucous membranes moist. NECK: Trachea midline. CARDIOVASCULAR: Regular rate and rhythm RESPIRATORY: Clear to auscultation. Breath sounds equal bilaterally. No wheezes, rales, or rhonchi. GASTROINTESTINAL: Abdomen soft, non-tender EXTREMITIES: No gross deformities. BACK: No flank tenderness. Mild bilateral paralumbar muscle tenderness, no CVA tenderness NEURO: AOx4. Clear speech fast exam is negative. Clear speech no facial droop light touch intact bilateral face hands steady self gait negative pronator drift SKIN: Warm and dry PSYCH: Not anxious, is cooperative Initial Vital Signs Initial Vital Signs: Vital Signs Temperature 98.3 F 07/19/24 14:23 Pulse Rate 101 H 07/19/24 14:23 Respiratory Rate 16 07/19/24 14:23 Blood Pressure 173/97 H 07/19/24 14:23 Pulse Oximetry 95 07/19/24 14:23 Oxygen Delivery Method Room Air 07/19/24 14:23 Course Orders Ordered: Discontinued Medications Acetaminophen (Acetaminophen 325 Mg Tablet) 650 mg PO NOW ONE Stop: 07/19/24 18:40 Last Admin: 07/19/24 18:47 Dose: 650 mg Documented By: JENNIFER Amlodipine Besylate (Amlodipine 5 Mg Tablet) 5 mg PO NOW ONE Stop: 07/19/24 14:41 Last Admin: 07/19/24 15:08 Dose: 5 mg Documented By: TAYO Vital Signs Vital signs: Vital Signs - 8 hr 07/19/24 14:23 07/19/24 15:08 07/19/24 15:17 Temperature 98.3 F Pulse Rate 101 H 77 68 Respiratory Rate 16 21 23 Blood Pressure 173/97 H Pulse Oximetry 95 96 97 Oxygen Delivery Method Room Air Room Air 07/19/24 15:17 07/19/24 15:30 07/19/24 15:30 Temperature Pulse Rate 71 Respiratory Rate 16 Blood Pressure 188/87 H 184/92 H Pulse Oximetry 94 Oxygen Delivery Method 07/19/24 16:00 07/19/24 16:00 07/19/24 16:17 Temperature Pulse Rate 73 72 Respiratory Rate 24 26 H Blood Pressure 167/115 H Pulse Oximetry 95 94 Oxygen Delivery Method 07/19/24 16:17 07/19/24 16:30 07/19/24 16:30 Temperature Pulse Rate 74 Respiratory Rate 18 Blood Pressure 183/91 H 184/94 H Pulse Oximetry 95 Oxygen Delivery Method 07/19/24 17:00 07/19/24 17:00 Temperature Pulse Rate 72 Respiratory Rate 23 Blood Pressure 176/84 H Pulse Oximetry 95 Oxygen Delivery Method MDM - Back Pain/Injury Lab Data 07/19/24 15:00 07/19/24 15:00 Labs: Lab Results 07/19/24 07/19/24 Range/Units 14:30 15:00 WBC 5.5 (4.5-11.0) X10^3/uL RBC 4.39 (4.0-5.2) X10^6/uL Hgb 14.4 (12.0-16.0) g/dL Hct 41.8 (36-46) % MCV 95.3 (80-100) fL MCH 32.7 (26-34) PG MCHC 34.3 (30-36) % RDW 13.9 (11.6-14.8) % Plt Count 176 (150-400) X10^3/uL Neut % (Auto) 77.2 H (50-75) % Lymph % (Auto) 12.6 L (25-40) % Schuyler % (Auto) 9.2 (3-14) % Eos % (Auto) 0.2 L (2-4) % Baso % (Auto) 0.8 (0-2) % Neut # (Auto) 4200 (4834-4060) /uL Lymph # (Auto) 700 L (9057-9765) /uL Schuyler # (Auto) 500 (0-900) /uL Eos # (Auto) 0 (0-450) /uL Baso # (Auto) 0 (0-100) /uL Sodium 138 (137-145) mmol/L Potassium 3.8 (3.4-5.1) mmol/L Chloride 107 (98-107) mmol/L Carbon Dioxide 23 (22-32) mmol/L BUN 25 H (7-17) mg/dL Creatinine 0.95 (0.52-1.04) mg/dL Estimated GFR > 60 (>60) mL/min BUN/Creatinine Ratio 26.3 H (6-22) Glucose 105 (80-110) mg/dL Calcium 9.1 (8.4-10.2) mg/dL Total Bilirubin 0.7 (0.2-1.3) mg/dL AST 32 (14-36) IU/L ALT 23 (<35) IU/L Alkaline Phosphatase 45 (38-126) U/L Total Creatine Kinase 34 (30-135) U/L Troponin I < 0.012 (0.01-0.034) ng/mL Total Protein 7.4 (6.3-8.2) g/dL Albumin 4.3 (3.5-5.0) g/dL Globulin 3.1 (1.7-4.1) g/dL Albumin/Globulin Ratio 1.4 (1.0-2.8) Urine RBC 0-1/hpf (0-5/HPF) Urine WBC 0-1/hpf (0-5/HPF) Ur Squamous Epith Cells 0-1 /hpf (0-5/HPF) Urine Bacteria None seen (None) Ur Culture Indicated? Cult not indicated Vol Urine Centrifuged [address] scan - abdomen/pelvis: Radiologist's Impression: [place] [address] CT Scan Report Signed Patient: Jenifer Gavin MR#: [id number] : 1945 Acct:[id number] Age/Sex: 79 / F Date of Service: 07/19/24 Loc: ED Accession Number: [id number] Procedure: CT kidney ureter bladder (KUB) Ordering Provider: Dom Boles MD PROCEDURE: CT KIDNEY URETER BLADDER (KUB) INDICATIONS: Flank pain TECHNIQUE: Axial sections were acquired from the lung bases to the pubic symphysis. Coronal and sagittal reformats were performed. For radiation dose reduction, the following was used: automated exposure control, adjustment of mA and/or kV according to patient size. COMPARISON: [facility], MR, MR THORACIC SPINE WITHOUT CONTRAST, 03/11/2024, 17:24. [facility], MR, MR LUMBAR SPINE WITHOUT CONTRAST, 03/11/2024, 17:46. [facility], CT, CT ABDOMEN PELVIS WITHOUT CONTRAST, 11/24/2023, 12:47. FINDINGS: Image quality: Diagnostic. Lower Chest: No significant findings. URINARY: Right Kidney: No stones or hydronephrosis. Right Ureter: No hydroureter. Left Kidney: No stones or hydronephrosis. At the superior pole of the left kidney, there is a stable hyperdense focus, as on series 2, image 37, measuring 12 mm. Left Ureter: No hydroureter. Bladder: Normal wall thickness. No stones. ABDOMEN: Liver: No contour-deforming solid mass. Gallbladder: No radiopaque gallstones or wall thickening. Biliary ducts: No biliary dilation. Pancreas: No ductal dilation. Spleen: Size is within normal limits. Adrenal Glands: No adrenal nodules. Stomach and Bowel: Normal colonic caliber, without significant wall thickening. Colonic diverticulosis is seen, without findings of active diverticulitis. No dilated loops of small bowel are seen. Peritoneum: No abnormal intraperitoneal fluid. No free air. Ventral Wall: No hernia. Abdominal Nodes: No enlarged retroperitoneal or mesenteric lymph nodes. Vessels: Aorta and inferior vena cava are normal in size. PELVIS: Pelvic Organs: No adnexal masses are seen on either side. Pelvic Nodes: Unremarkable. Miscellaneous: No inguinal hernias are seen. Bones: There is a remote T12 anterior wedge deformity, which is progressed compared to 2023. There is a Schmorl's node at the superior endplate of L3. Mild grade 1 L4-L5 anterolisthesis is seen, without associated pars defects. IMPRESSION: No obstructing stones or hydronephrosis. Stable 12 mm stable 12 mm hyperdense focus at the superior pole of the left kidney, which may represent a hyperdense cyst. Additional findings: T12 compression deformity, which is progressed compared to 2023. Diverticulosis, without active diverticulitis L3 Schmorl's node Grade 1 L4-L5 anterolisthesis Dictated by: Chuy Wilson M.D. on 07/19/2024 at 17:31 Approved by: Chuy Wilson M.D. on 07/19/2024 at 17:34 [facility] Narrative Medical decision making narrative: Patient here for improving urinary frequency, has bilateral flank discomfort, also has had dizziness. Patient blood pressure vital signs noted. She states her family doctor has been changing her blood pressure medications. She has been off of blood pressure medication for the past 3 weeks. She states she has been on lisinopril for over 15 years and she did receive a lisinopril that seemed to be different last month and it caused her to feel badly. Primary care did try to use losartan and the made her feel worse. Denies any chest pain palpitations or shortness of breath. Lightheadedness feels like she is floating in the air. No nausea or vomiting. Complains of bilateral flank pain. After history and exam, CBC CMP urinalysis EKG troponin, Norvasc/patient agrees to try Norvasc [facility] Medical records reviewed: No recent visits. This complaint Differential considered: Includes but not limited to pyelonephritis UTI hypertensive urgency Lab Test results independently reviewed as above. Pertinent findings: WBC 5.5 hemoglobin 14.4, no bacteria seen in urine, BUN 25 creatinine 0.95 GFR greater than 60 Independently reviewed EKG sinus rhythm rate [address] elevation or depression Imaging studies independently reviewed: CT KUB no acute finding, T12 compression fracture Consultations: None indicated at this time Re-evaluations: 5:08 p.m.. Updated patient results so far. She does agree for CT imaging for flank pain. KUB CT 6:40 p.m.. Updated patient results of CT KUB. Likely progressing T12 compression fracture needs to follow up with primary care regarding this and for physical therapy and referral for ortho spine. This is likely her source of back pain. Patient is neurologically intact. No neuro deficits. Return precautions reviewed. She desires discharge home. Discussion: Appropriate for discharge home exam is reassuring. Return precautions reviewed with patient. Dizziness likely due to patient's high blood pressure which has improved. Patient is tolerating Norvasc. Prescription provided. Return precautions reviewed. She desires discharge home. Diagnosis: Hypertension flank pain Discharge Plan Departure Patient Disposition: Home Clinical Impression: Compression fracture Hypertension Qualifiers: Hypertension type: primary hypertension Qualified Code(s): I10 - Essential (primary) hypertension Instructions: Vertebral Compression Fracture, Essential Hypertension, DI for Flank Pain Activity Restrictions/Additional Instructions: Your exam and laboratory studies imaging studies are reassuring. New prescription medication for your blood pressure has been provided for you and sent to your pharmacy to [facility] today and continue tomorrow. Please see your primary care office next week for re-evaluation of your blood pressure. Return if worse if any questions or concerns. Your laboratory studies are reassuring at this time. No antibiotics are indicated. Your back pain likely due to a thoracic vertebral compression fracture that is worsening. Please see your family doctor next week for re-evaluation and referral for MRI as well as Physical therapy and ortho spine referral. Continue ibuprofen or Tylenol for pain. Prescriptions: New amlodipine 10 mg tablet 10 mg PO DAILY Qty: 30 0RF No Action MULTIVITAMIN (#MULTIPLE VITAMINS) 1 cap PO Qty: 0 Fish Oil (Fish Oil 500 MG Softgel) 500 mg PO QDAY Qty: 0 lisinopril 10 mg tablet See Rx Instructions .ROUTE .COMPLEX Qty: 90 0RF Dose Instruction: 10 MG (1 TAB) BY MOUTH EVERY DAY Rx Instructions: 10 MG (1 TAB) BY MOUTH EVERY DAY; MUST BE SEEN FOR REFILLS triamcinolone acetonide 0.025 % cream 1 applic Topical QDAY Qty: 15 2RF Fossamax PO Referrals: Makayla Yang MD [Primary Care Provider] - Stand Alone Forms: Patient Portal/API/Survey
[2024-07-19 14:45] LABS: Urine Volume 3
[2024-07-19 14:54] LABS: Bacteria Urine None Seen; Culture Indicated Urine Cult Not Indicated; RBC Urine 0-1/HPF (0-5/HPF); Squamous Epithelial Cell Urine 0-1 /HPF (0-5/HPF); WBC Urine 0-1/HPF (0-5/HPF)
[2024-07-19] MEDS: AMLODIPINE 5 MG TABLET PO (15:08)
[2024-07-19 15:11] LABS: Add Manual Diff / Slide Review NO; Basophils Absolute Auto 0 /uL (0-100); Basophils Percent Auto 0.8 % (0-2); Eosinophils Absolute Auto 0 /uL (0-450); Eosinophils Percent Auto 0.2 % (2-4); Hematocrit 41.8 % (36-46); Hemoglobin 14.4 g/dL (12.0-16.0); Lymphocytes Absolute Auto 700 /uL (1100-4500); Lymphocytes Percent Auto 12.6 % (25-40); Mean Corpuscular HGB Conc 34.3 % (30-36); Mean Corpuscular Hemoglobin 32.7 PG (26-34); Mean Corpuscular Volume 95.3 fL (80-100); Monocytes Absolute Auto 500 /uL (0-900); Monocytes Percent Auto 9.2 % (3-14); Neutrophils Absolute Auto 4200 /uL (1500-7000); Neutrophils Percent Auto 77.2 % (50-75); Platelet Count 176 X10^3/uL (150-400); Red Blood Cell Count 4.39 X10^6/uL (4.0-5.2); Red Cell Distribution Width 13.9 % (11.6-14.8); White Blood Cell Count 5.5 X10^3/uL (4.5-11.0)
--- NOTE | 2024-07-19 15:15 | EKG_ITS ---
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
[2024-07-19 15:38] LABS: Alanine Aminotransferase 23 IU/L (<35); Albumin 4.3 g/dL (3.5-5.0); Albumin Globulin Ratio 1.4 (1.0-2.8); Alkaline Phosphatase 45 U/L (38-126); Aspartate Aminotransferase 32 IU/L (14-36); BUN Creatinine Ratio 26.3 (6-22); Bilirubin Total 0.7 mg/dL (0.2-1.3); Blood Urea Nitrogen 25 mg/dL (7-17); Calcium 9.1 mg/dL (8.4-10.2); Carbon Dioxide 23 mmol/L (22-32); Chloride 107 mmol/L (98-107); Creatine Kinase 34 U/L (30-135); Estimated Glomerular Filt Rate > 60 mL/min (>60); Globulin 3.1 g/dL (1.7-4.1); Glucose 105 mg/dL (80-110); HEMOLYSIS 16 (0-50); Potassium 3.8 mmol/L (3.4-5.1); Sodium 138 mmol/L (137-145); Total Protein 7.4 g/dL (6.3-8.2)
[2024-07-19 15:50] LABS: Troponin I < 0.012 ng/mL (0.01-0.034)
--- NOTE | 2024-07-19 17:09 | DI.CT.S_ITS ---
PROCEDURE: CT KIDNEY URETER BLADDER (KUB) INDICATIONS: Flank pain TECHNIQUE: Axial sections were acquired from the lung bases to the pubic symphysis. Coronal and sagittal reformats were performed. For radiation dose reduction, the following was used: automated exposure control, adjustment of mA and/or kV according to patient size. COMPARISON: [facility], MR, MR THORACIC SPINE WITHOUT CONTRAST, 03/11/2024, 17:24. [facility], MR, MR LUMBAR SPINE WITHOUT CONTRAST, 03/11/2024, 17:46. [facility], CT, CT ABDOMEN PELVIS WITHOUT CONTRAST, 11/24/2023, 12:47. FINDINGS: Image quality: Diagnostic. Lower Chest: No significant findings. URINARY: Right Kidney: No stones or hydronephrosis. Right Ureter: No hydroureter. Left Kidney: No stones or hydronephrosis. At the superior pole of the left kidney, there is a stable hyperdense focus, as on series 2, image 37, measuring 12 mm. Left Ureter: No hydroureter. Bladder: Normal wall thickness. No stones. ABDOMEN: Liver: No contour-deforming solid mass. Gallbladder: No radiopaque gallstones or wall thickening. Biliary ducts: No biliary dilation. Pancreas: No ductal dilation. Spleen: Size is within normal limits. Adrenal Glands: No adrenal nodules. Stomach and Bowel: Normal colonic caliber, without significant wall thickening. Colonic diverticulosis is seen, without findings of active diverticulitis. No dilated loops of small bowel are seen. Peritoneum: No abnormal intraperitoneal fluid. No free air. Ventral Wall: No hernia. Abdominal Nodes: No enlarged retroperitoneal or mesenteric lymph nodes. Vessels: Aorta and inferior vena cava are normal in size. PELVIS: Pelvic Organs: No adnexal masses are seen on either side. Pelvic Nodes: Unremarkable. Miscellaneous: No inguinal hernias are seen. Bones: There is a remote T12 anterior wedge deformity, which is progressed compared to 2023. There is a Schmorl's node at the superior endplate of L3. Mild grade 1 L4-L5 anterolisthesis is seen, without associated pars defects. IMPRESSION: No obstructing stones or hydronephrosis. Stable 12 mm stable 12 mm hyperdense focus at the superior pole of the left kidney, which may represent a hyperdense cyst. Additional findings: T12 compression deformity, which is progressed compared to 2023. Diverticulosis, without active diverticulitis L3 Schmorl's node Grade 1 L4-L5 anterolisthesis Dictated by: Chuy Wilson M.D. on 07/19/2024 at 17:31 Approved by: Chuy Wilson M.D. on 07/19/2024 at 17:34
[2024-07-19] MEDS: ACETAMINOPHEN 325 MG TABLET 650 MG PO (18:47)
--- NOTE | 2024-07-20 14:30 | PC.NURSE ---
Pt called the ER stating her Rx for amlodipine was not sent to the [facility]. Pt had the rx initially sent to [facility] but yesterday I talked to the staff and had them send the prescription to [facility] since they are open on . Prescription for amlodipine 10mg po daily qty 30 called in to [facility].
== END 2024-07-19 18:50 | disposition home or self-care (01) ==
PROVIDERS: Emergency Provider Emergency Medicine; PCP Family Medicine
DX: S22.080G Wedge compression fracture of T11-T12 vertebra, subsequent encounter for fracture with delayed healing (principal); I10 Essential (primary) hypertension; R42 Dizziness and giddiness
CPT/HCPCS: 36415; 74176; 80053; 81015; 82550; 84484; 85025; 93005; 93010; 99283; 99284

== ENCOUNTER → 2024-08-18 13:56 | Outpatient (CLI) | payer MEDICARE, MEDICAID, SELFPAY ==
--- NOTE | 2024-08-18 13:58 | DI.RAD.S_ITS ---
PROCEDURE: XR DEXA AXIAL SKELETON INDICATIONS: Osteoporosis COMPARISON: [facility], CR, XR DEXA AXIAL SKELETON, 06/24/2018, 15:25. FINDINGS: Lumbar Spine: Bone mineral density 0.595 g/cm2, T score -4.1, compared to -3.4. Left Femoral Neck: Bone mineral density 0.468 g/cm2, T score -3.4, compared to -2.8. Left Hip: Bone mineral density 0.673 g/cm2, T score -2.2, compared to -1.8. Fracture Risk Calculation (when applicable): 10-year fracture risk of a major osteoporotic fracture 36 percent and of a hip fracture 15 percent. This is compared to 17.7% and 5.7%. (T score greater or equal to -1.0 to: NORMAL) (T score from -1.1 to -2.4: OSTEOPENIA) (T score less than or equal to -2.5: OSTEOPOROSIS) IMPRESSION: Progressive marked bone mineral density loss with significant osteoporosis in the lumbar spine and femoral neck as well as now moderate to severe osteopenia in the left hip. Follow-up guidelines as follows: Osteoporosis: Consider a repeat DEXA and Vertebral Fracture Assessment (VFA) exam in 2 years or sooner if medically necessary, to reassess this patient's status. Osteopenia: Consider a repeat DEXA in 2-3 years to reassess this patient's status, or if there is a new clinical indication. Normal: Consider a repeat DEXA in 5 years or sooner, or if there is a new clinical indication. All treatment decisions require clinical judgment and consideration of individual patient factors, including patient preferences, comorbidities, previous drug use, risk factors not captured in the FRAX model (e.g., frailty, falls, vitamin D deficiency, increased bone turnover, interval significant decline in bone density ) and possible under- or over-estimation of fracture risk by FRAX. In addition, the NOF Guide recommends that FDA-approved medical therapies be considered in postmenopausal women and men age >= 50 years with a: * Hip or vertebral (clinical or morphometric) fracture * T-score of <=-2.5 at the spine or hip * Ten-year fracture probability by FRAX of >= 3% for hip fracture or >=20% for major osteoporotic fracture. Dictated by: Brittany Salgado M.D. on 08/18/2024 at 17:25 Approved by: Brittany Salgado M.D. on 08/18/2024 at 17:26
== END ==
LOC: RAD 13:57
PROVIDERS: PCP Family Medicine; Referring Provider Family Medicine; Visit Provider Family Medicine
DX: M81.0 Age-related osteoporosis without current pathological fracture (principal); M85.88 Other specified disorders of bone density and structure, other site
CPT/HCPCS: 77080

== ENCOUNTER → 2025-01-06 14:17 | Outpatient (CLI) | payer MEDICARE, MEDICAID, SELFPAY ==
--- NOTE | 2025-01-06 14:20 | DI.RAD.S_ITS ---
PROCEDURE: XR HAND LT 2V INDICATIONS: LEFT HAND PAIN TECHNIQUE: 3 views of the hand(s) acquired. COMPARISON: None. FINDINGS: Bones: No fractures or dislocations. Carpal bones are normally aligned. No suspicious bony lesions. Generalized decreased osseous mineralization noted. Degenerative arthritic changes noted involving the 2nd and 5th DIP and intercarpal joints. Generalized decreased osseous mineralization noted. Soft tissues: No suspicious soft tissue calcifications. IMPRESSION: Osteopenia and arthritic changes without fracture or intrinsic lesion Approved by: Franco Jama M.D. on 01/07/2025 at 13:16
== END ==
PROVIDERS: PCP Family Medicine; Referring Provider Family Medicine; Visit Provider Family Medicine
DX: M79.642 Pain in left hand (principal); M86.8X4 Other osteomyelitis, hand; M19.042 Primary osteoarthritis, left hand
CPT/HCPCS: 73120

== ENCOUNTER → 2025-02-25 14:13 | Outpatient (CLI) | payer MEDICARE, MEDICAID, SELFPAY ==
--- NOTE | 2025-02-25 14:19 | DI.RAD.S_ITS ---
PROCEDURE: FL JOINT INJECTION MEDIUM RT INDICATIONS: osteoarthritis right shoulder COMPARISON: None. TECHNIQUE: The indications, alternatives, benefits, risks, and complications of the procedure were explained to the patient. Written informed consent was obtained and placed in the chart. The patient was placed in an appropriate position on the fluoroscopy table, and a site was chosen for percutaneous access under fluoroscopic guidance. The site was prepped and draped in a sterile fashion. Local anesthetic was administered using a 1% lidocaine solution. A hypodermic or spinal needle was then used to access the symptomatic joint. Intra-articular location of the needle tip was confirmed by injecting a small amount of contrast, followed by steroid administration. The needle was then withdrawn, and a bandage applied to the puncture site. FINDINGS: Joint injected: Right glenohumeral joint. Medications injected: 5 mL of 40 mg/mL Kenalog and 0.5% Ropivacaine mixture. Patient's pain before injection: 7 out of 10. Patient's pain after injection: 4 out of 10. Complications: None. IMPRESSION: Successful fluoroscopically guided administration of steroid and anaesthetic solution into the right glenohumeral joint. Dictated by: Vlad Benitez M.D. on 02/25/2025 at 15:59 Approved by: Vlad Benitez M.D. on 02/25/2025 at 15:59
[2025-02-25] MEDS: LIDOCAINE 1% 20 ML INJ (15:37)
[2025-02-25] MEDS: TRIAMCINOLONE 40 MG/ML VIAL INTRA-ARTI (15:38)
== END ==
LOC: RAD 14:18
PROVIDERS: PCP Family Medicine; Visit Provider Radiology Diagnostic Radiology
DX: M19.011 Primary osteoarthritis, right shoulder (principal)
CPT/HCPCS: 20605; 77002; Q9967